=== PATIENT | male | born 1950 | race American Indian/Alaskan Native ===

== ENCOUNTER → 2016-10-11 | Day surgery (SDC) | payer MEDICARE | LOC: MSO 07:09 | DX: H25.12 Age-related nuclear cataract, left eye (principal); E11.319 Type 2 diabetes mellitus with unspecified diabetic retinopathy without macular edema; Z79.4 Long term (current) use of insulin; Z79.82 Long term (current) use of aspirin; I25.10 Atherosclerotic heart disease of native coronary artery without angina pectoris | CPT/HCPCS: 00142; A9270-GY; J0171; J2550; J3010; V2632; V2797 ==

== ENCOUNTER → 2023-11-30 | Outpatient (REF) | payer MEDICARE ==
[2023-11-30 17:49] LABS: HEMATOCRIT 25.4 % (42.0-52.0); HEMOGLOBIN 8.3 g/dL (13.5-18.0); MEAN CELL VOLUME 108 fl (78-100); MEAN CORPUSCULAR HEMOGLOBIN 35 pg (27-31); MEAN CORPUSCULAR HGB CONC 33 g/dL (33-37); MEAN PLATELET VOLUME 10.5 fl (7.4-10.4); PLATELET COUNT 657 K/mm3 (130-400); RED BLOOD COUNT 2.35 M/mm3 (4.20-5.60); RED CELL DISTRIBUTION WIDTH 20.1 % (11.5-14.5); WHITE BLOOD COUNT 13.7 K/mm3 (4.8-10.8)
[2023-11-30 18:36] LABS: LYMPHOCYTE 12 % (20-51); MONOCYTE 6 % (3-10); NEUTROPHILS 80 % (42-75)
[2023-11-30 18:39] LABS: HYPOCHROMIA 1+
[2023-11-30 18:51] LABS: ALBUMIN 3.8 g/dL (3.4-4.8)
[2023-11-30 18:53] LABS: CALCIUM 8.7 mg/dL (8.3-10.5)
[2023-11-30 18:56] LABS: TOTAL BILIRUBIN 0.4 mg/dL (0.2-1.2)
== END ==
LOC: LAB 17:28
PROVIDERS: Internal Medicine
DX: D75.81 Myelofibrosis (principal)